=== PATIENT | female | born 1935 | race Caucasian/White ===

== ENCOUNTER 2017-09-17 09:13 | Day surgery (SDC) | payer MEDICARE ==
[~2017-09-17] VITALS: Ht 160 cm; Wt 62.4 kg
[~2017-09-17 09:13] MED LIST: ATOR40TA; Altace2.5 MG PO; CLOP75 PO; METO25 PO; METO50 PO; PANT20 PO; TUMS300 MG
== END 2017-09-17 12:43 | disposition home or self-care (01) ==
LOC: ORSCSDS 09:13
PROVIDERS: Orthopaedic Surgery
PROC: 0SBC4ZZ Excision of Right Knee Joint, Percutaneous Endoscopic Approach (ICD-10-PCS; principal; 2017-09-17 10:30)
DX: S83.241A Other tear of medial meniscus, current injury, right knee, initial encounter (principal); M17.11 Unilateral primary osteoarthritis, right knee; I10 Essential (primary) hypertension; G47.33 Obstructive sleep apnea (adult) (pediatric); N18.9 Chronic kidney disease, unspecified; Z86.73 Personal history of transient ischemic attack (TIA), and cerebral infarction without residual deficits; Z79.899 Other long term (current) drug therapy
CPT/HCPCS: J0171; J0690; J3010; J7120

== ENCOUNTER → 2017-10-25 | Outpatient (CLI) | payer MEDICARE | END | disposition home or self-care (01) | LOC: PLD 11:13 → LAB SHORT 11:13 | DX: D22.61 Melanocytic nevi of right upper limb, including shoulder (principal) | CPT/HCPCS: 88305 ==

== ENCOUNTER → 2017-11-28 | Outpatient (CLI) | payer MEDICARE | LOC: PLD 15:08 → LAB SHORT 15:08 | DX: C44.719 Basal cell carcinoma of skin of left lower limb, including hip (principal) | CPT/HCPCS: 88305 ==

== ENCOUNTER 2019-08-15 11:30 | Day surgery (SDC) | payer MEDICARE ==
[~2019-08-15] VITALS: Ht 160 cm; Wt 63.8 kg
[~2019-08-15 11:30] MED LIST changes: -ATOR40TA; +ATOR40TA PO; +CARV3.125 PO; +HYDR1TAB94 PO; +LANS15EC PO; -TUMS300 MG; +TUMS300 MG PO; +VITAMIN D350 MCG PO
--- NOTE | 2019-08-15 12:43 | NUR ---
Ambulatory in Day Surgery. Surgical site prepped with 2% Chlorhexidine cloth wipe. History, Chart, Medications and Allergies reviewed before start of procedure.Lungs clear T/O to Auscultation. Patient confirms NPO status and agrees with scheduled surgery. Pre-Op teaching done. Pt verbalizes understanding. Patient reports completing Chlorhexadine shower X2 prior to admission to hospital.
--- NOTE | 2019-08-16 04:39 | NUR ---
SHIFT SUMMARY POD 1 S/P LEFT TKA. PT A/O W/ VSS T/O SHIFT. DRESSING/LEWIS WRAP TO LEFT KNEE IN PLACE, APPEARS C/D/I WITH NO DRAINAGE NOTED. PAIN MANAGED WITH PO MEDICATION AND ICE THERAPY; POLAR PACK IN PLACE. VOIDING AND REPORTS PASSING FLATUS, UP TO BSC. CURRRENTLY RESTING IN BED WITH CALL LIGHT IN REACH. WILL CONT TO MONITOR AND GIVE REPORT TO ONCOMING RN.
[2019-08-16 04:55] LABS: BASOPHILS ABSOLUTE AUTO 0.02 K/mm3 (0.00-0.23); BASOPHILS PERCENT AUTO 0 % (0-2); EOSINOPHILS PERCENT AUTO 0 % (0-6); Hematocrit 31.7 % (33.0-51.0); Hemoglobin 10.4 g/dL (11.5-16.0); IMMATURE GRAN ABSOLUTE AUTO 0.03 K/mm3 (0.00-0.10); IMMATURE GRAN PERCENT AUTO 0 % (0-1); LYMPHOCYTES ABSOLUTE AUTO 0.62 K/mm3 (0.84-5.20); LYMPHOCYTES PERCENT AUTO 6 % (21-46); MONOCYTES ABSOLUTE AUTO 0.66 K/mm3 (0.16-1.47); MONOCYTES PERCENT AUTO 6 % (4-13); Mean Corpuscular HGB Conc 32.8 g/dL (31.5-36.5); Mean Corpuscular Volume 98 fL (80-100); Mean Platelet Volume 9.6 fL (9.1-12.4); NEUTROPHILS ABSOLUTE AUTO 9.64 K/mm3 (1.96-9.15); NEUTROPHILS PERCENT AUTO 88 % (41-73); Platelet Count 189 K/mm3 (150-400); RDW Coefficient Variation 11.4 % (11.7-14.2); RDW Standard Deviation 40.6 fL (35.1-46.3); Red Blood Cell Count 3.25 M/mm3 (3.80-5.20); White Blood Cell Count 10.97 K/mm3 (4.00-11.30)
[2019-08-16 05:13] LABS: Bun/Creatinine Ratio 22.1 (12.0-20.0); Calcium, Blood 8.2 mg/dL (8.5-10.1); Creatinine, Blood 1.04 mg/dL (0.40-1.00); Magnesium, Blood 1.6 mg/dL (1.6-2.4); Potassium, Blood 4.5 mmol/L (3.5-5.5)
--- NOTE | 2019-08-16 08:01 | NUR ---
DR. DIMAS ROUNDED AND DRESSING WAS CHANGED.
[2019-08-16] MEDS ORDERED: OXYC5 PO (11:20)
[2019-08-16] MEDS ORDERED: PROM12.5S PO (11:22)
--- NOTE | 2019-08-16 14:26 | NUR ---
DISCHARGE PT PROVIDED WITH WRITTEN AND VERBAL DISCHARGE INSTRUCTION. PT REPORTED UNDERSTANING. DRESSINGS PROVIDED FOR HOME USE. PT REPORTED SHE HAD FILLED HER PRESCRIPTIONS PRIOR TO SURGERY. CLARIFIED WITH DR. DIMAS NO NEED FOR HOME ANTIBIOTICS. PT ESCORTED OUT IN W/C BY TOM WORRELL.
== END 2019-08-16 14:10 | disposition home or self-care (01) ==
LOC: ORSCMMR 11:30 → ORD 13:00 → ORSCMMR 13:00 → SURS 16:11 → ORSCMMR 08-16 14:10
PROVIDERS: Orthopaedic Surgery
PROC: 8E0YXBZ Computer Assisted Procedure of Lower Extremity (ICD-10-PCS; principal; 2019-08-15 13:00)
PROC: 0SRC0J9 Replacement of Right Knee Joint with Synthetic Substitute, Cemented, Open Approach (ICD-10-PCS; principal; 2019-08-15 13:00)
DX: M17.11 Unilateral primary osteoarthritis, right knee (principal); G47.33 Obstructive sleep apnea (adult) (pediatric); I12.9 Hypertensive chronic kidney disease with stage 1 through stage 4 chronic kidney disease, or unspecified chronic kidney disease; N18.9 Chronic kidney disease, unspecified; Z86.73 Personal history of transient ischemic attack (TIA), and cerebral infarction without residual deficits; Z79.899 Other long term (current) drug therapy; Z79.01 Long term (current) use of anticoagulants
CPT/HCPCS: 36415; 73560-RT; 80048; 83735; 85025; 88300; 97110; 97116; 97162; C1713; C1776; J0171; J0690; J0735; J1100; J1885; J2405; J2550; J2704; J2765; J2795; J3370; J7120

== ENCOUNTER → 2020-05-04 | Outpatient (CLI) | payer MEDICARE ==
[~2020-05-04] MED LIST changes: +OXYC5 PO; +PROM12.5S PO
== END | disposition home or self-care (01) ==
LOC: LAB SHORT 15:15 → PLD 15:15
DX: D48.5 Neoplasm of uncertain behavior of skin (principal)
CPT/HCPCS: 88305

== ENCOUNTER 2021-10-13 07:01 | Day surgery (SDC) | payer MEDICARE ==
[~2021-10-13] VITALS: Ht 157.5 cm; Wt 59.3 kg
[~2021-10-13 07:01] MED LIST changes: +Carvedilol12.5 MG PO; +EZET10 PO; +ROSU10TA PO; +TEMA7.5 PO
[2021-10-13] MEDS ORDERED: RAMI2.5 (07:22)
== END 2021-10-13 09:47 | disposition home or self-care (01) ==
LOC: ORSCSDS 07:01
PROVIDERS: Surgery
PROC: 0DBP8ZX Excision of Rectum, Via Natural or Artificial Opening Endoscopic, Diagnostic (ICD-10-PCS; principal; 2021-10-13 08:30)
DX: Z12.11 Encounter for screening for malignant neoplasm of colon (principal); Z86.010 Personal history of colon polyps; K62.1 Rectal polyp; I10 Essential (primary) hypertension; I63.9 Cerebral infarction, unspecified; E78.5 Hyperlipidemia, unspecified; I73.9 Peripheral vascular disease, unspecified; G47.33 Obstructive sleep apnea (adult) (pediatric); Z87.891 Personal history of nicotine dependence; Z79.899 Other long term (current) drug therapy
CPT/HCPCS: 88305; J2704

== ENCOUNTER → 2023-01-03 | Outpatient (CLI) | payer MEDICARE ==
[~2023-01-03] MED LIST changes: +RAMI2.5
== END | disposition home or self-care (01) ==
LOC: LAB 14:26 → LAB SHORT 14:26 → PLD 14:26
DX: L57.0 Actinic keratosis (principal)
CPT/HCPCS: 88305

== ENCOUNTER 2023-03-05 05:58 | Day surgery (SDC) | payer MEDICARE ==
[~2023-03-05] VITALS: Ht 157.5 cm; Wt 60.3 kg
[2023-03-05] VITALS (14 sets, daily range): BP systolic 98–165; BP diastolic 48–87
[~2023-03-05 05:58] MED LIST changes: +MULVITA PO
[2023-03-05] MEDS ORDERED: Acetaminophen650 M1 (06:35)
[2023-03-05] MEDS ORDERED: BENADRYL25 MG PO (06:36)
--- NOTE | 2023-03-05 07:22 | NUR ---
Ambulatory in Day Surgery Pre-Op teaching done. Pt verbalizes understanding. History, Chart, Medications and Allergies reviewed before start of procedure.Patient confirms NPO status and agrees with scheduled surgery.
--- NOTE | 2023-03-05 10:06 | NUR ---
PATIENT CAME BACK FROM PACU TODAY AT 1000. POD 0 LEFT TKA PATIENT IS A&OX4. VS ARE WNL AND IS ON RA. PATIENT HAD A SPINAL DURING THE PROCEDURE AND CAN'T FEEL FROM HER WAIST DOWN. HOWEVER, PEDAL PULSES ARE STRONG AND WARM TO THE TOUCH. HER LEFT KNEE HAS ACEWRAP AND POLAR PACK IN PLACE AND IS C/D/I. PATIENT IS LAYING IN BED WITH CALL LIGHT IN REACH. SHE IS TOLERATING SMALL AMOUNTS OF PO INTAKE WELL.
--- NOTE | 2023-03-05 15:19 | NUR ---
SHIFT SUMMARY: POD 0 LEFT TOTAL HIP ANTERIOR PATIENT IS A&OX4. VS ARE WNL AND IS ON RA. PATIENT REPORTS HAVING "TINGLING" SENSATION IN BOTH LEGS BUT IS ABLE TO MOVE THEM/WIGGLE HER TOES. PEDAL PULSES ARE STRONG AND WARM TO TOUCH. HER CLEAR MESH DRESSING ON HER LEFT HIP IS C/D/I. PATIENT IS TOLERATING PO INTAKE. SHE IS LAYING IN BED WITH CALL LIGHT IN REACH. PATIENT HAS YET TO HAVE A POST OP VOID BUT WILL BLADDER SCAN IF SHE IS UNABLE TO SPONTANEOUSLY VOID.
[2023-03-06 04:38] LABS: BASOPHILS ABSOLUTE AUTO 0.03 K/mm3 (0.00-0.23); BASOPHILS PERCENT AUTO 0 % (0-2); EOSINOPHILS PERCENT AUTO 0 % (0-6); Hemoglobin 11.1 g/dL (11.5-16.0); IMMATURE GRAN ABSOLUTE AUTO 0.03 K/mm3 (0.00-0.10); IMMATURE GRAN PERCENT AUTO 0 % (0-1); LYMPHOCYTES ABSOLUTE AUTO 0.69 K/mm3 (0.84-5.20); LYMPHOCYTES PERCENT AUTO 7 % (21-46); MONOCYTES ABSOLUTE AUTO 1.15 K/mm3 (0.16-1.47); MONOCYTES PERCENT AUTO 11 % (4-13); Mean Corpuscular HGB 32.2 pg (26.0-34.0); Mean Corpuscular HGB Conc 34.7 g/dL (31.5-36.5); Mean Corpuscular Volume 93 fL (80-100); Mean Platelet Volume 9.7 fL (9.1-12.4); NEUTROPHILS ABSOLUTE AUTO 8.67 K/mm3 (1.96-9.15); NEUTROPHILS PERCENT AUTO 82 % (41-73); Platelet Count 188 K/mm3 (150-400); RDW Coefficient Variation 11.3 % (11.7-14.2); RDW Standard Deviation 38.7 fL (35.1-46.3); Red Blood Cell Count 3.45 M/mm3 (3.80-5.20); White Blood Cell Count 10.57 K/mm3 (4.00-11.30)
[2023-03-06 04:49] VITALS: BP 145/64
[2023-03-06 04:55] LABS: Bun/Creatinine Ratio 24.8 (12.0-20.0); Calcium, Blood 8.4 mg/dL (8.5-10.1); Creatinine, Blood 1.13 mg/dL (0.40-1.00); Magnesium, Blood 1.6 mg/dL (1.6-2.4); Potassium, Blood 4.4 mmol/L (3.5-5.5)
--- NOTE | 2023-03-06 05:38 | NUR ---
SHIFT SUMMARY AOX4. VSS. POD 1-L ANTERIOR TOTAL HIP. DENIES N/T. CAP REFILL <3 SEC. STRONG PEDAL PULSES, WARM FEET. PRINEO DRESSING C/D/I. REPORTS 4-6/10 PAIN IN L HIP, LOW BACK & L UPPER THIGH, MEDICATED 2x c 10MG OXYCODONE & 1x c SCHEDULED TYLENOL/TORADOL. PT UP SBY ASSIST TO RESTROOM c FWW. PT AMBULATED CISSE LAST NIGHT. TOLERATING PO, DENIES N/V. DID HAVE EPISODE HEARTBURN, MEDICATED 1x c TUMS & NO FURTHER DISCOMFORT REPORTED. CALL LIGHT IN REACH & PT ABLE TO MAKE NEEDS KNOWN
[2023-03-06 07:11] VITALS: BP 105/51
[2023-03-06] MEDS ORDERED: XARELTO10 M1 PO (10:43)
[2023-03-06] MEDS ORDERED: ACET500 PO (10:44)
[2023-03-06] MEDS ORDERED: OXYC5 PO (10:45)
[2023-03-06 11:50] VITALS: BP 143/67
--- NOTE | 2023-03-06 14:42 | NUR ---
DISCHARGE PT WAS PROVIDED WITH WRITTEN AND VERBAL DISCHARGE INSTRUCTIONS, SHE AND HER FAMILY REPORTED UNDERSTANDING. CLEAN DRESSINS PROVIDED. PRESCRIPTIONS WERE PROVIDED AND FAMILY REPORTED THEY HAD OBTAINED NEW MEDICATIONS. PAIN MANAGED AT TIME OF DISCHARGE. VSS. PT ASSISTED OUT IN W/C BY JADA WORRELL AT 1352.
== END 2023-03-06 13:30 | disposition home or self-care (01) ==
LOC: ORSCMMR 05:58 → ORD 07:30 → SURS 10:02 → ORSCMMR 03-06 13:30
PROVIDERS: Orthopaedic Surgery
PROC: 0SRB0JZ Replacement of Left Hip Joint with Synthetic Substitute, Open Approach (ICD-10-PCS; principal; 2023-03-06)
DX: M16.12 Unilateral primary osteoarthritis, left hip (principal); E78.5 Hyperlipidemia, unspecified; I10 Essential (primary) hypertension; G47.33 Obstructive sleep apnea (adult) (pediatric); I73.9 Peripheral vascular disease, unspecified; Z96.651 Presence of right artificial knee joint; Z86.73 Personal history of transient ischemic attack (TIA), and cerebral infarction without residual deficits; Z79.02 Long term (current) use of antithrombotics/antiplatelets; Z79.899 Other long term (current) drug therapy
CPT/HCPCS: 36415; 72170; 80048; 83735; 85025; 94762; 97110; 97116; 97162; A9270; C1713; C1776; J0171; J0690; J0735; J1100; J1885; J2250; J2405; J2704; J2795; J3010; J7120

== ENCOUNTER → 2023-04-04 | Outpatient (CLI) | payer MEDICARE ==
[~2023-04-04] MED LIST changes: +ACET500 PO; +Acetaminophen650 M1; +BENADRYL25 MG PO; +XARELTO10 M1 PO
== END ==
LOC: LAB SHORT 15:24 → PLD 15:24
DX: D48.5 Neoplasm of uncertain behavior of skin (principal)
CPT/HCPCS: 88305

== ENCOUNTER 2024-11-11 07:45 | Emergency (ER) | payer MEDICARE ==
[~2024-11-11] VITALS: Ht 157.5 cm; Wt 61.0 kg
[2024-11-11 08:15] LABS: Source, Urine Clean Catch
[2024-11-11 08:19] LABS: Appearance, Urine Clear (Clear); Bilirubin, Urine Neg (Neg); Blood, Urine 2+ (Neg); Color, Urine Yellow (P-Yellow); Glucose Qualitative, Urine Neg (Neg); Ketones, Urine 2+ (Neg); Leukocyte Esterase, Urine Neg (Neg); Nitrite, Urine Neg (Neg); Protein, Urine 3+ (Neg); Specific Gravity, Urine 1.015 (1.003-1.022); Urobilinogen, Urine NORM (Normal)
[2024-11-11 08:28] LABS: Mucus Light (0-Heavy); White Blood Cells, Urine 0-2 /hpf (0-5)
[2024-11-11 08:29] LABS: Bacteria Not Seen /hpf; Squamous Epithelial Cells Few /hpf (Few)
[2024-11-11 08:41] LABS: BASOPHILS ABSOLUTE AUTO 0.05 K/mm3 (0.00-0.23); BASOPHILS PERCENT AUTO 1 % (0-2); EOSINOPHILS ABSOLUTE AUTO 0.01 K/mm3 (0.00-0.68); EOSINOPHILS PERCENT AUTO 0 % (0-6); Hematocrit 40.6 % (33.0-51.0); Hemoglobin 14.2 g/dL (11.5-16.0); IMMATURE GRAN ABSOLUTE AUTO 0.01 K/mm3 (0.00-0.10); IMMATURE GRAN PERCENT AUTO 0 % (0-1); LYMPHOCYTES ABSOLUTE AUTO 0.62 K/mm3 (0.84-5.20); LYMPHOCYTES PERCENT AUTO 8 % (21-46); MONOCYTES ABSOLUTE AUTO 0.57 K/mm3 (0.16-1.47); MONOCYTES PERCENT AUTO 8 % (4-13); Mean Corpuscular HGB 31.3 pg (26.0-34.0); Mean Corpuscular Volume 90 fL (80-100); Mean Platelet Volume 9.4 fL (9.1-12.4); NEUTROPHILS PERCENT AUTO 83 % (41-73); Platelet Count 224 K/mm3 (150-400); RDW Coefficient Variation 11.5 % (11.7-14.2); RDW Standard Deviation 37.6 fL (35.1-46.3); Red Blood Cell Count 4.53 M/mm3 (3.80-5.20); White Blood Cell Count 7.36 K/mm3 (4.00-11.30)
[2024-11-11] MEDS ORDERED: NS 1,000 ML IV SCH (08:45)
[2024-11-11] MEDS ORDERED: Ramipril5 MG PO (09:00)
[2024-11-11] MEDS ORDERED: ROSUVASTATIN CA40 MG PO (09:00)
[2024-11-11 09:04] LABS: Albumin, Blood 3.9 g/dL (3.4-5.0); Albumin/Globulin Ratio 1.1 (0.8-1.8); Bilirubin, Total 0.5 mg/dL (0.1-1.0); Bun/Creatinine Ratio 17.5 (12.0-20.0); Creatinine, Blood 0.86 mg/dL (0.40-1.00); Globulin, Blood 3.5 g/dL (2.2-4.0); Total Protein, Blood 7.4 g/dL (6.4-8.2)
[2024-11-11 10:08] VITALS: BP 152/69
[2024-11-11] MEDS ORDERED: Ondansetron HCl 2 MG / ML 2ML Vial IV ONE (11:00)
[2024-11-11] MEDS ORDERED: ONDA4ODT MM (11:29)
[2024-11-11] MEDS ORDERED: Norco 5-325 Ta1 EACH PO (11:40)
== END 2024-11-11 11:57 | disposition home or self-care (01) ==
LOC: ER 07:45
PROVIDERS: Student in an Organized Health Care Education/Training Program
DX: R10.9 Unspecified abdominal pain (principal); Z59.89 Other problems related to housing and economic circumstances; Z87.891 Personal history of nicotine dependence; I10 Essential (primary) hypertension; Z88.8 Allergy status to other drugs, medicaments and biological substances; Z79.83 Long term (current) use of bisphosphonates; Z79.899 Other long term (current) drug therapy; Z79.02 Long term (current) use of antithrombotics/antiplatelets; Z79.1 Long term (current) use of non-steroidal anti-inflammatories (NSAID); Z79.891 Long term (current) use of opiate analgesic
CPT/HCPCS: 74177; 80053; 81001; 85025; 96361; 96374-59; 99284-25; J2405; J7030; Q9967